=== PATIENT | male | born 1960 | race Two or more races ===

== ENCOUNTER 2025-07-12 15:59 | Emergency (ER) | payer MEDICARE, OTHER ==
[~2025-07-12] VITALS: Ht 177.8 cm; Wt 68.2 kg
[2025-07-12 16:00] VITALS: PULSE 0
--- NOTE | 2025-07-12 16:13 | ED.PDOC ---
CPR-HPI HPI Comments T55 y.o male presents to the ED via EMS due to cardiac arrest. EMS reports patient was found unresponsive in his motel room by his , prompting an 911 call. Per , patient had been complaining of not feeling well all day and was last seen normal about 20 to 30 minutes prior to being found. On EMS arrival, the patient was found in cardiac arrest and a shockable rhythm of V-tach was identified with an AutoPulse CPR method immediately started. Resuscitation efforts included EMS administrating 4 rounds of epinephrine and 1 round of lidocaine. An IO was established to the left leg, and the patient was intubated with a 7.0 size tube, secured at 22 cm at the lip. The patient was defibrillated twice, with both shocks resulting in conversion from V-tach to asystole. The last shock was performed two minutes prior to ED arrival. Additionally, two rounds of Narcan prior to arrival. Patient remains asystole up ED Arrival with AutoPulse active. Limited information obtained by on scene and she is currently not present in the ER, thus no medical history noted. Time Seen by MD: 16:00 Reviewed Notes: Nurses Notes, Wireless Development Manager Notes, Medications, Allergies Allergies: Coded Allergies: UNOBTAINABLE (Unverified , 07/12/25) Information Source: Emergency Med Personnel Mode of Arrival: EMS Timing: Hours Duration: Down time prior EMS: (-30) Onset: Unknown Available Hx: Unknown Treatment: CPR, Intubation, External pacer, IV, Epinephrine, Other (lidocaine ) Response: No response Associated signs and symptoms: Unknown Past Medical History PAST MEDICAL HISTORY: Unobtainable Surgical History: Unobtainable Family History Family History: Unobtainable Social History Smoker: Unobtainable Alcohol: Unobtainable Drugs: Unobtainable Lives In: Unobtainable Unable to Obtain due to: Medical Urgency, Intubated Physical Exam General Appearance: Severe Distress HEENT: Other (Pupils fixed and dilated) Neck: NOT DONE Respiratory: Respiratory Distress (Intubated) Cardiovascular: Other (No pulse) Breast Exam: Deferred Gastrointestinal: Soft Genitalia: Deferred Pelvic: Deferred Rectal: Deferred Extremities: NOT DONE Neurologic: Other (Unconscious) Cerebellar Function: NOT DONE Reflexes: NOT DONE Skin: Pallor Peripheral Pulses: 0 Radial (R), 0 Radial (L) Lymphatic: NOT DONE Was a procedure done? Was a procedure done?: No Differential Dx CPR Differential Diagnosis: Cardiopulmonary arrest, Cardiac Tamponade, Electrolyte disorder, Heart Block, Myocardial Infarction, Pulmonary Embolus, Respiratory Failure X-Ray, Labs, Meds, VS Vital Signs Date Time Temp Pulse Resp B/P (MAP) Pulse Ox O2 Delivery O2 Flow Rate FiO2 07/12/25 16:00 0 CPR in progress. Transferred the care. Has been given ACLS drugs prior to arrival. Continued ACLS medication. Pupils fixed and dilated. No family at bedside. He did have ET tube in place prior to arrival. Spoke with the team. He did not have a pulse throughout. Pronounce the patient. Informed the family. Time of 1ST Reevaluation: 16:07 Reevaluation 1ST: Unchanged Patient Education/Counseling: Pt Unresponsive Family Education/Counseling: No Family Present SEPSIS Sepsis Screen Vital Signs Date Time Temp Pulse Resp B/P (MAP) Pulse Ox O2 Delivery O2 Flow Rate FiO2 07/12/25 16:00 0 Departure 1 Departure Time of Disposition: 17:05 Impression: Primary Impression: Cardiac arrest Disposition: 20 Condition: Other Critical Care Note Critical Care Time?: Yes Heart Score Heart Score: Heart Score Response (Comments) Value History N/A 0 EKG N/A 0 Age N/A 0 Risk Factors N/A 0 Troponin N/A 0 Total 0 Stability Stability form required: No I personally scribed for DEREK ASTUDILLO MD ([email or web address]) on 07/12/25 at 16:13. Electronically submitted by Arleen Tapia ([facility]). DEREK ASTUDILLO MD Jul 12, 2025 16:13
--- NOTE | 2025-07-12 17:46 | RESUS ---
CODE BLUE ASSESSSMENT History of Events History of Events: PATIENT BROUGHT IN BY EMS WITH CPR IN PROGRESS WITH AUTOPULSE. PER EMS REPORT PATIENT WAS LAST SEEN NORMAL 20-30 MINUTES PRIOR TO EMS ARRIVAL FOUND DOWN IN THE RESTROOM AT THE [facility] 6 TOLD MULTIPLE TIMES HE DIDN'T FEEL WELL. 4 ROUNDS OF EPI ADMINISTERED ENROUTE, 2 SHOCKS ADMINSITERED CONVERTED FROM V TACH TO ASYSTOLE PER REPORT ADMINISTERED 2MG OF NARCAN, I/O TO LEFT TIB FIB PATIENT DIRECTLY TO BED 06 Initial Information Date: Jul 12, 2025 Time: 16:00 Location of Arrest: [facility] ROOM Arrest Witnessed: No CPR started initial time: 15:35 CPR started by whom: EMS Last seen well: 1515 Pre-Hospital Care: ACLS Type of arrest: Cardiac, Respiratory, Adult, Unwitnessed Spontaneous Respirations: No Pulse Present: No Monitoring: ECG, Pulse Oximetry, Capnography Crash Cart Opened and Supplies: Yes Airway Ventilation Breathing at Onset: Assisted Oxygen Delivery Method: Ambu-Bag Artificial Ventilation: Bag/Endo tube Intubation Size: 7.0 cuffed Intubated by: EMS Intubated orally: Yes Intubated Nasaly: No Tube secured at: 24 Confirmation: Auscultation, Exhaled CO2 Circulation Circulation #1: Time: 16:03 Pulse Rate (adult): 0 Circulation Comment: ASYSTOLE Circulation #2: Time: 16:05 Pulse Rate (adult): 0 Circulation Comment: ASYSTOLE Circulation #3: Time: 16:08 Pulse Rate (adult): 0 Circulation Comment: ASYSTOLE Circulation #4: Time: 16:10 Pulse Rate (adult): 0 Circulation Comment: ASYSTOLE Procedure - IV Procedure - IV : IV start time: 16:08 IV Side: Left IV Location: Forearm Anterior IV Catheter Type: Saline Lock IV Placed: In Hospital IV Placed by GLORIA OVIEDO IV Gauge: 20 IV Line Care: Saline Flush Procedure - Intraosseous Site of Intraosseous: Tibia maricel-medial Intraosseous inserted by: EMS Number of attempts for Intraos: 1 Medications & Response Medications and Responses #1: Medication Time: 16:01 ADULT Medications Given ADULT: Sodium Bacarbinate 50 meq Route of Administration: IO EKG Rhythm: Asystole Medications and Responses #2: Medication Time: 16:02 ADULT Medications Given ADULT: Epinephrine 1 mg, Calcium Chloride 10 mL Route of Administration: IO EKG Rhythm: Asystole Medications and Responses #3: Medication Time: 16:05 ADULT Medications Given ADULT: Epinephrine 1 mg Route of Administration: IO EKG Rhythm: Asystole Medications and Responses #4: Medication Time: 16:06 ADULT Medications Given ADULT: Sodium Bacarbinate 50 meq Route of Administration: IO EKG Rhythm: Asystole Medications and Responses #5: Medication Time: 16:08 ADULT Medications Given ADULT: Epinephrine 1 mg Route of Administration: IV EKG Rhythm: Asystole Nurses Notes Ac Coma Scale Eye Opening: None (1) [place] Coma Scale Verbal: None (1) [place] Coma Scale Motor: None (1) [place] Total: 3 Pupil Reaction: Non Reactive Bedside Blood Glucose: 418 EKG Rhythm: Asystole Time Code Ended Time Code Ended: 16:10 Post Arrest Status: Outcome of code: Unsuccessful Patient pronounced by: DR ASTUDILLO Time patient pronounced: 16:10 Family notified: Yes Code Team Present: DR WILDA ANDERSON, RT ONEAL MARSHALL, GLORIA OVIEDO, RN HEIDE, GLORIA GARCIA, ERT SONAM, ERT JOANNA ADAMS Jul 12, 2025 17:46
== END 2025-07-12 19:59 ==
LOC: ER 15:59 → EDBD 15:59 → ER 19:59
DX: I46.9 Cardiac arrest, cause unspecified (principal); F17.200 Nicotine dependence, unspecified, uncomplicated; R57.9 Shock, unspecified
CPT/HCPCS: 92950; 99291